=== PATIENT | male | born 1950 | race Caucasian/White ===

== ENCOUNTER 2016-05-20 06:42 | Day surgery (SDC) | payer MEDICAID, OTHER ==
[2016-05-20] MEDS ORDERED: Lactated Ringers 1,000 ML IV SCH (06:45)
[2016-05-20] MEDS ORDERED: Sodium Chloride 0.9% 10 ML Syringe FLUSH PRN (06:45)
[2016-05-20] MEDS ORDERED: Propofol 200 MG/20 ML SDV IV ONE (08:00)
--- NOTE | 2016-05-20 08:49 | PCM.OPNOTE ---
- General Post-Op/Procedure Note Date of Surgery/Procedure: 05/20/16 Operative Procedure(s): c scope with biopsy hot loop and cold forcep Findings: polyps x2 ascending colon Pre Op Diagnosis: screeing for cancer Post-Op Diagnosis: ascending colon polyps Anesthesia Technique: MAC Primary Surgeon: Xander Kelley Anesthesia Provider: Nadeem Montoya Pathology: ascending colon polyp Complications: None Condition: Good Free Text/Narrative:: see dictation
[2016-05-20 09:57] VITALS: BP 117/85
--- NOTE | 2016-05-20 10:18 | OR ---
DATE OF OPERATION: 05/20/2016 SURGEON: Xander Kelley MD PROCEDURE PERFORMED: Colonoscopy with cold forceps and hot loop snare biopsy. PREOPERATIVE DIAGNOSIS: Colon cancer screening. POSTOPERATIVE DIAGNOSIS: Polyp x2 of the ascending colon. INDICATIONS: This is a 65-year-old white male who presents for screening colonoscopy. He was offered and accepted same. DESCRIPTION OF OPERATION: After an excellent IV sedation was administered, digital rectal exam was performed. No marked abnormality was noted. The flexible colonoscope was inserted and advanced without difficulty to the cecum. The prep was excellent. The following findings were noted. At the distal ascending colon, 2 small polyps, one approximately 2 mm in size and a pedunculated polyp, were encountered. The smaller polyp was biopsied with the cold forceps, and the larger polyp was biopsied with the hot loop, and retrieved via suction. Transverse colon, unremarkable. Descending colon, unremarkable. Sigmoid and rectum, unremarkable. Colon was deflated as the scope was removed. The patient tolerated the procedure and was taken to recovery room in good condition. /[id number] /MODL
== END 2016-05-20 09:40 | disposition home or self-care (01) ==
LOC: FB.SDS 06:42
PROVIDERS: ATTEND Surgery
PROC: 0DBK8ZX Excision of Ascending Colon, Via Natural or Artificial Opening Endoscopic, Diagnostic (ICD-10-PCS; principal; 2016-05-20)
PROC: 0DBK8ZX Excision of Ascending Colon, Via Natural or Artificial Opening Endoscopic, Diagnostic (ICD-10-PCS; 2016-05-20)
DX: Z12.11 Encounter for screening for malignant neoplasm of colon (principal); D12.2 Benign neoplasm of ascending colon
CPT/HCPCS: 45380; 45385; 88305; J2704; J7120

== ENCOUNTER 2019-10-07 07:40 | Day surgery (SDC) | payer MEDICAID, MEDICARE ==
[~2019-10-07 07:40] MED LIST: Lactated Ringers 1,000 ML IV SCH; Sodium Chloride 0.9% 10 ML Syringe FLUSH PRN
[2019-10-07] MEDS ORDERED: fentaNYL 100 MCG/2 ML SDV IV ONE (07:41)
[2019-10-07] MEDS ORDERED: Succinylcholine 200 MG/10 ML MDV IV ONE (07:41)
[2019-10-07] MEDS ORDERED: Lactated Ringers 1,000 ML IV ONE (07:41)
[2019-10-07] MEDS ORDERED: Midazolam 1 MG/ML 2 ML SDV IV ONE (07:41)
[2019-10-07] MEDS ORDERED: Rocuronium 50 MG/5 ML Vial IV ONE (07:41)
[2019-10-07] MEDS ORDERED: Propofol 200 MG/20 ML SDV IV ONE (07:41)
[2019-10-07] MEDS ORDERED: Ondansetron 4 MG/2 ML SDV IVPUSH ONE (07:41)
[2019-10-07] MEDS ORDERED: Lidocaine 1% with EPINEPHrine 1:100,000 20 ML MDV INJECT ONE (09:29)
[2019-10-07] MEDS ORDERED: Bupivacaine 0.5% 30 ML SDV INJECT ONE (09:29)
[2019-10-07] MEDS ORDERED: Acetaminophen/HYDROcodone 325-5 MG Tab PO PRN (10:16)
--- NOTE | 2019-10-07 10:29 | PCM.OPNOTE ---
- General Post-Op/Procedure Note Date of Surgery/Procedure: 10/07/19 Operative Procedure(s): wide local excision of melanoma in situ and atypical nevus of chest. excision of recurrent melanoma of rue Findings: chest specimen 8x 3.5 x 1 cm. 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 atypical nevus of sternum Post-Op Diagnosis: Same Anesthesia Technique: General ET Tube, Local (16 ml 1 % lido with epi/0.5% buvipicaine) Primary Surgeon: Xander Kelley Anesthesia Provider: Arabella Carey Pathology: as above EBL in mLs: 2 Complications: None Condition: Good Free Text/Narrative:: see dictation
[2019-10-07 11:14] VITALS: BP 123/83; PULSE 65
--- NOTE | 2019-10-07 17:23 | OR ---
DATE OF OPERATION: 10/07/2019 SURGEON: Xander Kelley MD PROCEDURE PERFORMED: Wide local excision of atypical nevus of the sternum as well as melanoma in situ of the chest as well as excision of a recurrent malignant melanoma of the right upper extremity. POSTOPERATIVE DIAGNOSES: 1. Atypical nevus of the sternum. 2. Melanoma in situ of the chest wall. 3. Recurrent malignant melanoma of the right upper extremity. INDICATIONS FOR PROCEDURE: Mr. Chambers is a 68-year-old white male who had several years ago underwent a wide local excision as well as a sentinel lymph node biopsy for a malignant melanoma of the right upper extremity, recently noted to have what appeared to be a roughly 3 cm lesion in the inferior aspect of his wide local excision scar. Needle core biopsy demonstrated this to be recurrent malignant melanoma. In addition, on followup with Dermatology, he 2 lesions in close proximity to each other on the chest near the sternum on the right side just above the right costal margin, which on shave biopsy was positive for malignant melanoma in situ as well as an atypical nevus, and he was offered a wide local excision of these 2 lesions. Intraoperative findings are as follows: The chest specimen was submitted and that was roughly 8 x 3.5 x 1 cm in size. Due to their proximity after measuring out a 5 mm margin required for both of these lesions, it was prudent to submit these in one specimen to maintain margins and get a good clear cosmesis in closure. The right upper extremity specimen measured 8.5 x 6 x 3 cm. DESCRIPTION OF PROCEDURE: After an excellent endotracheal anesthesia was administered, the patient was prepped and draped in usual sterile manner. The area around the chest was addressed first. 5 mm margins were drawn around the 2 shave biopsy sites and a single specimen of roughly 8 x 3.5 cm was drawn out to encompass both areas with a 5 mm margin. An elliptical incision was then carried out and electrocautery was used to dissect the specimen down to the chest wall fascia. The medial and superior cephalad margins were marked. The defect was then closed with interrupted 2-0 Vicryl followed by a running subcu 3- 0 Vicryl. Having completed this, our attention was then turned to the right upper extremity where the area was infiltrated. We measured a 1 cm margin around the visible nodule. An elliptical incision was then carried out after infiltrating with more local, a grand total of 16 mL was used in both sites, and electrocautery dissection was carried out down to the fascia and a small bit of the fascia was included overlying the triceps. The specimen had no visible tumor and that it appeared to be completely encased in fat. The fascial defect was then closed with interrupted 2-0 Vicryl. The subcu fat was approximated with 3-0 Vicryl, and yaniv were used to close the skin. Margins again were marked on both specimens as well, cephalad, medial, and inferior. Dressings were applied. Needle, sponge, and instrument counts were reported as correct. The patient was taken to recovery room in good condition having tolerated the procedure well. /[id number] /MODL
== END 2019-10-07 11:21 | disposition home or self-care (01) ==
LOC: FB.SDS 07:40
PROVIDERS: ATTEND Surgery
DX: C43.61 Malignant melanoma of right upper limb, including shoulder (principal); D22.5 Melanocytic nevi of trunk; L08.89 Other specified local infections of the skin and subcutaneous tissue; E78.2 Mixed hyperlipidemia; E66.09 Other obesity due to excess calories; I10 Essential (primary) hypertension; N40.1 Benign prostatic hyperplasia with lower urinary tract symptoms; R35.1 Nocturia; Z79.82 Long term (current) use of aspirin; Z79.899 Other long term (current) drug therapy; Z68.35 Body mass index [BMI] 35.0-35.9, adult
CPT/HCPCS: 11606; 12034; 88305; 88341; 88342; J0330; J2250; J2405; J2704; J3010; J3490; J7120; 00400-QZ